=== PATIENT | male | born 1995 | race Hispanic/Latino ===

== ENCOUNTER 2019-11-05 00:58 | Emergency (ER) | payer SELFPAY ==
[~2019-11-05] VITALS: Ht 167.6 cm; Wt 124.7 kg
[2019-11-05] MEDS ORDERED: ACETAMINOPHEN 325 MG TAB PO ONE (02:30)
--- NOTE | 2019-11-05 03:15 | Diagnostic Imaging Report ---
EXAMINATION: CHEST 2 VIEWS INDICATION: Shortness of breath. COMPARISON: None FINDINGS: TUBES and LINES: None. LUNGS: Low lung volumes with vascular crowding and patchy bibasilar opacities. No evidence of lobar pneumonia. PLEURA: No pleural effusion or pneumothorax. HEART AND MEDIASTINUM: The cardiomediastinal silhouette is unremarkable. BONES AND SOFT TISSUES: No acute osseous lesion. Soft tissues are unremarkable. UPPER ABDOMEN: No free air under the diaphragm. IMPRESSION: Low lung volumes with patchy bibasilar opacities, likely atelectasis. Infection is possible in the appropriate clinical setting. No evidence of lobar consolidation. Signed by: Dr. Manjula Parker MD on 11/05/2019 3:12 AM
[2019-11-05 03:49] LABS: INFLUENZAE A&B ANTIGEN (RAPID) NEGATIVE (NEGATIVE); STREPTOCOCCUS GRP A ANTIGEN NEGATIVE (NEGATIVE)
[2019-11-05 05:36] VITALS: BP 99/73
== END 2019-11-05 04:12 | disposition home or self-care (01) ==
LOC: ER 00:58
DX: R50.9 Fever, unspecified (principal); R05 Cough; R10.13 Epigastric pain; B34.9 Viral infection, unspecified
CPT/HCPCS: 71046; 83518; 87070; 87400; 99283